=== PATIENT | female | born 1960 | race Caucasian/White ===

== ENCOUNTER 2018-07-22 11:30 | Inpatient (IN) ==
[2018-07-22] MEDS ORDERED: Morphine Inj 4 MG/ML Vial IV.PUSH ONE (12:55)
[2018-07-22] MEDS ORDERED: Vancomycin Inj 1,000 MG in Sodium Chlor 0.9% Inj 250 ML IV.SIG ONE (13:02)
--- NOTE | 2018-07-22 13:02 | ED ---
HPI General Chief complaint: HEAD BUTLER Stated complaint: Poss Infection Time Seen by Provider: 07/22/18 12:45 Source: patient Mode of arrival: ambulatory Limitations: no limitations History of Present Illness HPI Narrative: Patient is a 58-year-old female presenting to the emerge department for evaluation of pain, swelling and redness to her labia. Patient states it started 3 weeks ago with vaginal itching secondary to her diabetic medication Farxiga. Last week patient noticed a bump on the inside of her labia , over the next several days she noticed several bumps and now there are diffuse over both labia. Patient called her supervisor meter shop this morning who evaluated her in the office and cultured 1 of the areas. She was sent to the emergency department for further evaluation and admission. Patient reports 10 out of 10 pain when sitting. Pain is aching, burning, currently a 7 out of 10, constant. Past medical history significant for type 2 diabetes, hypertension, obesity, hyperlipidemia. Patient is followed by Dr. Pendleton. Patient states that her campaign advisor Dr. Chávez discontinued the Farxiga and started her on Janumet. Additionally patient had an upper respiratory infection a few weeks ago and was on oral antibiotics and oral steroids which is likely exacerbated symptoms. Related Data Home Medications Medication Instructions Recorded Confirmed aspirin 81 mg PO DAILY 07/22/18 07/22/18 dulaglutide [Trulicity] 0.75 mg SUBCUT QWEEK 07/22/18 07/22/18 ergocalciferol (vitamin D2) 50,000 unit PO QWEEK 07/22/18 07/22/18 [Vitamin D2] glyburide 5 mg PO DAILY 07/22/18 07/22/18 lisinopril-hydrochlorothiazide 0.5 tab PO DAILY 07/22/18 07/22/18 lorazepam 1 mg PO PRN PRN 07/22/18 07/22/18 metoprolol tartrate 25 mg PO BID 07/22/18 07/22/18 rosuvastatin 40 mg PO HS 07/22/18 07/22/18 sitagliptin-metformin [Janumet] 1 tab PO BID 07/22/18 07/22/18 spironolactone 25 mg PO DAILY 07/22/18 07/22/18 trazodone 50 mg PO HS PRN 07/22/18 07/22/18 Previous Rx's Medication Instructions Recorded fluconazole 200 mg PO Q24H #5 tab 07/26/18 sulfamethoxazole-trimethoprim 1 tab PO Q12HR #14 tab 07/26/18 Allergies Allergy/AdvReac Type Severity Reaction Status Date / Time No Known Allergies Allergy Verified 07/22/18 12:04 Review of Systems ROS: all other systems reviewed are negative [facility] Medical History Medical History History of MRSA infection (Acute ~07/22/18) Diabetes (Chronic) HTN (hypertension) (Chronic) Hyperlipemia (Chronic) Surgical History Surgical History History of appendectomy (Chronic) History of arthroscopy of right shoulder (Chronic) History of cholecystectomy (Chronic) History of hysterectomy (Chronic) History of tonsillectomy (Chronic) Social History Social History Substance History: No History of Abuse Second Hand Smoke Exposure: No Smoking Status: Never smoker How Often Do You Have a Drink Containing Alcohol: Never Recent Travel in [facility] within the Last 8 Weeks: Yes Recent Out of Country Travel within the Last 8 Weeks: No Immunization History Tetanus Immunization: <5 Years Exam Narrative Exam Narrative: GENERAL: Overweight, well-developed, alert female. Appears uncomfortable, no acute distress. SKIN: Focused skin assessment warm/dry. Edema and erythema noted to bilateral labia majora. Significant tenderness to palpation. Firm to palpation. HEAD: Atraumatic. Normocephalic. EYES: Pupils equal and round. No scleral icterus. No injection or drainage. ENT: No nasal bleeding or discharge. Mucous membranes pink and moist. NECK: Trachea midline. No JVD. CARDIOVASCULAR: Regular rate and rhythm. No murmur appreciated. RESPIRATORY: No accessory muscle use. Clear to auscultation. Breath sounds equal bilaterally. GASTROINTESTINAL: Abdomen soft, non-tender, nondistended. Hepatic and splenic margins not palpable. MUSCULOSKELETAL: No obvious deformities. No clubbing. No cyanosis. No edema. NEUROLOGICAL: Awake and alert. No obvious cranial nerve deficits. Motor grossly within normal limits. Normal speech. PSYCHIATRIC: Appropriate mood and affect; insight and judgment normal. Course Initial Documented Vital Signs Temperature 98.1 F 07/22/18 12:03 Pulse Rate 83 07/22/18 12:03 Respiratory Rate 18 07/22/18 12:03 Blood Pressure 151/77 H 07/22/18 12:03 Pulse Oximetry 100 07/22/18 12:03 Last Documented Vital Signs Temperature 97.9 F 07/26/18 07:26 Pulse Rate 75 07/26/18 07:26 Respiratory Rate 16 07/26/18 07:26 Blood Pressure 105/42 L 07/26/18 07:26 Pulse Oximetry 98 07/26/18 07:26 Medical Decision Making EFRAIN Attestation EFRAIN supervised visit: Yes Attestation: I, Dr. Oscar, have reviewed the advance practice practitioner's documentation and am in agreement, met with the patient face to face, made the diagnosis, and the medical decision making was done by me. *My assessment and Findings: Patient seen and examined by me in addition to Ade Goode a 58-year-old female presents emergency department with a week 's worth of significant rash on her bilateral labia. She has pain even when she sits on it at this point. I do not appreciate any crepitance, she is actually had attempted labial drainage by her [employer], no significant fluid was drained. She was sent here for admission to the hospital for iv antibiotics and infectious disease consult I do not disagree. My index of suspicion for necrotizing fasciitis is fairly low. Internal exam was deferred secondary to patient comfort. MDM Narrative Medical decision making narrative: Patient was sent in by her supervisor meter shop for evaluation of possible severe labial cellulitis with abscesses. Labs and imaging ordered and pending. Patient will be given morphine for pain control, Zofran to prevent nausea. Dr. Pendleton requested lactated Ringer's at 125, this was ordered. Patient significant other is at the bedside. IV access was established, patient was placed on secured entrance monitor and continuous pulse oximetry. CBC with no acute findings, chemistry is unremarkable, CRP is 0.72, sed rate is 42. CT scan of the abdomen and pelvis with no acute findings. Patient was given antibiotics empirically. She will be admitted under observation for IV antibiotics, Dr. Pendleton was notified, she states that she will see patient in consult. Patient was admitted to Dr. Iqbal. Admit orders placed. Patient and were advised on clinical findings and plan of care. Patient is resting comfortably. Patient's vital signs remained stable. Medical Screen Exam Complete: Yes Emergency Medical Condition: Yes Differential Diagnosis Differential Diagnosis: Cellulitis versus abscess versus excising fasciitis versus metabolic abnormality versus other Medical Records Medical records reviewed: Yes I reviewed the patient's medical records. Lab Data Lab results reviewed: Yes I reviewed the patient's lab results. Result diagrams: 07/23/18 08:29 07/26/18 04:00 Lab Results 07/22/18 07/22/18 07/22/18 Range/Units 13:20 13:20 13:20 WBC 8.8 (4.0-11.0) th/mm3 RBC 4.69 (4.00-5.30) mil/mm3 Hgb 13.8 (11.6-15.3) gm/dL Hct 39.6 (35.0-46.0) % MCV 84.3 (80.0-100.0) fL MCH 29.4 (27.0-34.0) pg MCHC 34.8 (32.0-36.0) % RDW 15.2 (11.6-17.2) % Plt Count 173 (150-450) th/mm3 MPV 9.2 (7.0-11.0) fL Neut % (Auto) 70.5 H (16.0-70.0) % Lymph % (Auto) 22.0 (9.0-44.0) % [place] % (Auto) 4.7 (0.0-8.0) % Eos % (Auto) 2.2 (0.0-4.0) % Baso % (Auto) 0.6 (0.0-2.0) % Neut # (Auto) 6.2 (1.8-7.7) th/mm3 Lymph # (Auto) 1.9 (1.0-4.8) th/mm3 [place] # (Auto) 0.4 (0.0-0.9) th/mm3 Eos # (Auto) 0.2 (0.0-0.4) th/mm3 Baso # (Auto) 0.1 (0.0-0.2) th/mm3 WBC Differential . Differential Comment Auto diff final ESR (0-30) mm/hr PT 10.1 (9.8-11.6) sec INR 1.0 Ratio APTT 24.7 (23.4-31.7) sec Sodium 138 (136-145) meq/L Potassium 4.1 (3.5-5.1) meq/L Chloride 104 (98-107) meq/L Carbon Dioxide 28.0 (21.0-32.0) meq/L Anion Gap 6 (5-15) meq/L BUN 16 (7-18) mg/dL Creatinine 0.89 (0.50-1.00) mg/dL Estimated GFR 66 L (>89) mL/min POC Glucose (68-110) mg/dl Random Glucose 194 H (74-106) mg/dL Hemoglobin A1c (4.3-6.0) % Calcium 9.5 (8.5-10.1) mg/dL Magnesium 1.6 (1.5-2.5) mg/dL Total Bilirubin 0.7 (0.2-1.0) mg/dL AST 18 (15-37) U/L ALT 25 (10-53) U/L Alkaline Phosphatase 57 (45-117) U/L C-Reactive Protein 0.72 H (0.00-0.30) mg/dL Total Protein 8.0 (6.4-8.2) g/dL Albumin 3.6 (3.4-5.0) g/dL Lipase 205 (73-393) U/L Urine Color (Yellw/Straw) Urine Clarity (Clear) Urine pH (5.0-8.5) Ur Specific [place] (1.002-1.035) Urine Protein (Neg-Trace) mg/dL Urine Glucose (UA) (Negative) mg/dL Urine Ketones (Negative) mg/dL Urine Occult Blood (Negative) Urine Nitrate (Negative) Urine Bilirubin (Negative) Urine Urobilinogen (Less than 2) mg/dL Ur Leukocyte Esterase (Negative) Urine RBC (0-3) /hpf Urine WBC (0-5) /hpf Ur Squamous Epith Cells (0-5) /hpf Granular Casts (None) /lpf Urine Mucus (Occasional) /lpf Micro UA Comment Ur Microscopic Review Urine Culture Comments Vancomycin Trough (5.0-10.0) mcg/mL 07/22/18 07/22/18 07/22/18 Range/Units 13:20 13:20 14:32 WBC (4.0-11.0) th/mm3 RBC (4.00-5.30) mil/mm3 Hgb (11.6-15.3) gm/dL Hct (35.0-46.0) % MCV (80.0-100.0) fL MCH (27.0-34.0) pg MCHC (32.0-36.0) % RDW (11.6-17.2) % Plt Count (150-450) th/mm3 MPV (7.0-11.0) fL Neut % (Auto) (16.0-70.0) % Lymph % (Auto) (9.0-44.0) % [place] % (Auto) (0.0-8.0) % Eos % (Auto) (0.0-4.0) % Baso % (Auto) (0.0-2.0) % Neut # (Auto) (1.8-7.7) th/mm3 Lymph # (Auto) (1.0-4.8) th/mm3 [place] # (Auto) (0.0-0.9) th/mm3 Eos # (Auto) (0.0-0.4) th/mm3 Baso # (Auto) (0.0-0.2) th/mm3 WBC Differential Differential Comment ESR 42 H (0-30) mm/hr PT (9.8-11.6) sec INR Ratio APTT (23.4-31.7) sec Sodium (136-145) meq/L Potassium (3.5-5.1) meq/L Chloride (98-107) meq/L Carbon Dioxide (21.0-32.0) meq/L Anion Gap (5-15) meq/L BUN (7-18) mg/dL Creatinine (0.50-1.00) mg/dL Estimated GFR (>89) mL/min POC Glucose (68-110) mg/dl Random Glucose (74-106) mg/dL Hemoglobin A1c 8.0 H (4.3-6.0) % Calcium (8.5-10.1) mg/dL Magnesium (1.5-2.5) mg/dL Total Bilirubin (0.2-1.0) mg/dL AST (15-37) U/L ALT (10-53) U/L Alkaline Phosphatase (45-117) U/L C-Reactive Protein (0.00-0.30) mg/dL Total Protein (6.4-8.2) g/dL Albumin (3.4-5.0) g/dL Lipase (73-393) U/L Urine Color Yellow (Yellw/Straw) Urine Clarity Clear (Clear) Urine pH 5.0 (5.0-8.5) Ur Specific [place] 1.019 (1.002-1.035) Urine Protein Negative (Neg-Trace) mg/dL Urine Glucose (UA) Negative (Negative) mg/dL Urine Ketones Negative (Negative) mg/dL Urine Occult Blood Moderate H (Negative) Urine Nitrate Negative (Negative) Urine Bilirubin Negative (Negative) Urine Urobilinogen Less than 2 (Less than 2) mg/dL Ur Leukocyte Esterase Negative (Negative) Urine RBC 1 (0-3) /hpf Urine WBC 2 (0-5) /hpf Ur Squamous Epith Cells 2 (0-5) /hpf Granular Casts 1 (None) /lpf Urine Mucus Few H (Occasional) /lpf Micro UA Comment Culture not ind Ur Microscopic Review Not Reportable Urine Culture Comments Culture not ind Vancomycin Trough (5.0-10.0) mcg/mL 07/22/18 07/22/18 07/23/18 Range/Units 17:36 22:19 08:29 WBC 6.1 (4.0-11.0) th/mm3 RBC 4.42 (4.00-5.30) mil/mm3 Hgb 12.7 (11.6-15.3) gm/dL Hct 37.2 (35.0-46.0) % MCV 84.2 (80.0-100.0) fL MCH 28.8 (27.0-34.0) pg MCHC 34.3 (32.0-36.0) % RDW 14.9 (11.6-17.2) % Plt Count 147 L (150-450) th/mm3 MPV 8.7 (7.0-11.0) fL Neut % (Auto) 67.0 (16.0-70.0) % Lymph % (Auto) 23.4 (9.0-44.0) % [place] % (Auto) 5.8 (0.0-8.0) % Eos % (Auto) 3.2 (0.0-4.0) % Baso % (Auto) 0.6 (0.0-2.0) % Neut # (Auto) 4.1 (1.8-7.7) th/mm3 Lymph # (Auto) 1.4 (1.0-4.8) th/mm3 [place] # (Auto) 0.3 (0.0-0.9) th/mm3 Eos # (Auto) 0.2 (0.0-0.4) th/mm3 Baso # (Auto) 0.0 (0.0-0.2) th/mm3 WBC Differential . Differential Comment Auto diff final ESR (0-30) mm/hr PT (9.8-11.6) sec INR Ratio APTT (23.4-31.7) sec Sodium (136-145) meq/L Potassium (3.5-5.1) meq/L Chloride (98-107) meq/L Carbon Dioxide (21.0-32.0) meq/L Anion Gap (5-15) meq/L BUN (7-18) mg/dL Creatinine (0.50-1.00) mg/dL Estimated GFR (>89) mL/min POC Glucose 114 H 148 H (68-110) mg/dl Random Glucose (74-106) mg/dL Hemoglobin A1c (4.3-6.0) % Calcium (8.5-10.1) mg/dL Magnesium (1.5-2.5) mg/dL Total Bilirubin (0.2-1.0) mg/dL AST (15-37) U/L ALT (10-53) U/L Alkaline Phosphatase (45-117) U/L C-Reactive Protein (0.00-0.30) mg/dL Total Protein (6.4-8.2) g/dL Albumin (3.4-5.0) g/dL Lipase (73-393) U/L Urine Color (Yellw/Straw) Urine Clarity (Clear) Urine pH (5.0-8.5) Ur Specific [place] (1.002-1.035) Urine Protein (Neg-Trace) mg/dL Urine Glucose (UA) (Negative) mg/dL Urine Ketones (Negative) mg/dL Urine Occult Blood (Negative) Urine Nitrate (Negative) Urine Bilirubin (Negative) Urine Urobilinogen (Less than 2) mg/dL Ur Leukocyte Esterase (Negative) Urine RBC (0-3) /hpf Urine WBC (0-5) /hpf Ur Squamous Epith Cells (0-5) /hpf Granular Casts (None) /lpf Urine Mucus (Occasional) /lpf Micro UA Comment Ur Microscopic Review Urine Culture Comments Vancomycin Trough (5.0-10.0) mcg/mL 07/23/18 07/23/18 07/23/18 Range/Units 08:29 08:46 12:36 WBC (4.0-11.0) th/mm3 RBC (4.00-5.30) mil/mm3 Hgb (11.6-15.3) gm/dL Hct (35.0-46.0) % MCV (80.0-100.0) fL MCH (27.0-34.0) pg MCHC (32.0-36.0) % RDW (11.6-17.2) % Plt Count (150-450) th/mm3 MPV (7.0-11.0) fL Neut % (Auto) (16.0-70.0) % Lymph % (Auto) (9.0-44.0) % [place] % (Auto) (0.0-8.0) % Eos % (Auto) (0.0-4.0) % Baso % (Auto) (0.0-2.0) % Neut # (Auto) (1.8-7.7) th/mm3 Lymph # (Auto) (1.0-4.8) th/mm3 [place] # (Auto) (0.0-0.9) th/mm3 Eos # (Auto) (0.0-0.4) th/mm3 Baso # (Auto) (0.0-0.2) th/mm3 WBC Differential Differential Comment ESR (0-30) mm/hr PT (9.8-11.6) sec INR Ratio APTT (23.4-31.7) sec Sodium 138 (136-145) meq/L Potassium 4.1 (3.5-5.1) meq/L Chloride 102 (98-107) meq/L Carbon Dioxide 32.0 (21.0-32.0) meq/L Anion Gap 4 L (5-15) meq/L BUN 13 (7-18) mg/dL Creatinine 0.86 (0.50-1.00) mg/dL Estimated GFR 68 L (>89) mL/min POC Glucose 155 H 288 H (68-110) mg/dl Random Glucose 173 H (74-106) mg/dL Hemoglobin A1c (4.3-6.0) % Calcium 9.1 (8.5-10.1) mg/dL Magnesium (1.5-2.5) mg/dL Total Bilirubin (0.2-1.0) mg/dL AST (15-37) U/L ALT (10-53) U/L Alkaline Phosphatase (45-117) U/L C-Reactive Protein (0.00-0.30) mg/dL Total Protein (6.4-8.2) g/dL Albumin (3.4-5.0) g/dL Lipase (73-393) U/L Urine Color (Yellw/Straw) Urine Clarity (Clear) Urine pH (5.0-8.5) Ur Specific [place] (1.002-1.035) Urine Protein (Neg-Trace) mg/dL Urine Glucose (UA) (Negative) mg/dL Urine Ketones (Negative) mg/dL Urine Occult Blood (Negative) Urine Nitrate (Negative) Urine Bilirubin (Negative) Urine Urobilinogen (Less than 2) mg/dL Ur Leukocyte Esterase (Negative) Urine RBC (0-3) /hpf Urine WBC (0-5) /hpf Ur Squamous Epith Cells (0-5) /hpf Granular Casts (None) /lpf Urine Mucus (Occasional) /lpf Micro UA Comment Ur Microscopic Review Urine Culture Comments Vancomycin Trough (5.0-10.0) mcg/mL 07/23/18 07/23/18 07/24/18 Range/Units 19:36 22:11 09:36 WBC (4.0-11.0) th/mm3 RBC (4.00-5.30) mil/mm3 Hgb (11.6-15.3) gm/dL Hct (35.0-46.0) % MCV (80.0-100.0) fL MCH (27.0-34.0) pg MCHC (32.0-36.0) % RDW (11.6-17.2) % Plt Count (150-450) th/mm3 MPV (7.0-11.0) fL Neut % (Auto) (16.0-70.0) % Lymph % (Auto) (9.0-44.0) % [place] % (Auto) (0.0-8.0) % Eos % (Auto) (0.0-4.0) % Baso % (Auto) (0.0-2.0) % Neut # (Auto) (1.8-7.7) th/mm3 Lymph # (Auto) (1.0-4.8) th/mm3 [place] # (Auto) (0.0-0.9) th/mm3 Eos # (Auto) (0.0-0.4) th/mm3 Baso # (Auto) (0.0-0.2) th/mm3 WBC Differential Differential Comment ESR (0-30) mm/hr PT (9.8-11.6) sec INR Ratio APTT (23.4-31.7) sec Sodium (136-145) meq/L Potassium (3.5-5.1) meq/L Chloride (98-107) meq/L Carbon Dioxide (21.0-32.0) meq/L Anion Gap (5-15) meq/L BUN (7-18) mg/dL Creatinine (0.50-1.00) mg/dL Estimated GFR (>89) mL/min POC Glucose 178 H 159 H 144 H (68-110) mg/dl Random Glucose (74-106) mg/dL Hemoglobin A1c (4.3-6.0) % Calcium (8.5-10.1) mg/dL Magnesium (1.5-2.5) mg/dL Total Bilirubin (0.2-1.0) mg/dL AST (15-37) U/L ALT (10-53) U/L Alkaline Phosphatase (45-117) U/L C-Reactive Protein (0.00-0.30) mg/dL Total Protein (6.4-8.2) g/dL Albumin (3.4-5.0) g/dL Lipase (73-393) U/L Urine Color (Yellw/Straw) Urine Clarity (Clear) Urine pH (5.0-8.5) Ur Specific [place] (1.002-1.035) Urine Protein (Neg-Trace) mg/dL Urine Glucose (UA) (Negative) mg/dL Urine Ketones (Negative) mg/dL Urine Occult Blood (Negative) Urine Nitrate (Negative) Urine Bilirubin (Negative) Urine Urobilinogen (Less than 2) mg/dL Ur Leukocyte Esterase (Negative) Urine RBC (0-3) /hpf Urine WBC (0-5) /hpf Ur Squamous Epith Cells (0-5) /hpf Granular Casts (None) /lpf Urine Mucus (Occasional) /lpf Micro UA Comment Ur Microscopic Review Urine Culture Comments Vancomycin Trough (5.0-10.0) mcg/mL 07/24/18 07/24/18 07/24/18 Range/Units 13:05 18:02 22:06 WBC (4.0-11.0) th/mm3 RBC (4.00-5.30) mil/mm3 Hgb (11.6-15.3) gm/dL Hct (35.0-46.0) % MCV (80.0-100.0) fL MCH (27.0-34.0) pg MCHC (32.0-36.0) % RDW (11.6-17.2) % Plt Count (150-450) th/mm3 MPV (7.0-11.0) fL Neut % (Auto) (16.0-70.0) % Lymph % (Auto) (9.0-44.0) % [place] % (Auto) (0.0-8.0) % Eos % (Auto) (0.0-4.0) % Baso % (Auto) (0.0-2.0) % Neut # (Auto) (1.8-7.7) th/mm3 Lymph # (Auto) (1.0-4.8) th/mm3 [place] # (Auto) (0.0-0.9) th/mm3 Eos # (Auto) (0.0-0.4) th/mm3 Baso # (Auto) (0.0-0.2) th/mm3 WBC Differential Differential Comment ESR (0-30) mm/hr PT (9.8-11.6) sec INR Ratio APTT (23.4-31.7) sec Sodium (136-145) meq/L Potassium (3.5-5.1) meq/L Chloride (98-107) meq/L Carbon Dioxide (21.0-32.0) meq/L Anion Gap (5-15) meq/L BUN (7-18) mg/dL Creatinine (0.50-1.00) mg/dL Estimated GFR (>89) mL/min POC Glucose 137 H 138 H 121 H (68-110) mg/dl Random Glucose (74-106) mg/dL Hemoglobin A1c (4.3-6.0) % Calcium (8.5-10.1) mg/dL Magnesium (1.5-2.5) mg/dL Total Bilirubin (0.2-1.0) mg/dL AST (15-37) U/L ALT (10-53) U/L Alkaline Phosphatase (45-117) U/L C-Reactive Protein (0.00-0.30) mg/dL Total Protein (6.4-8.2) g/dL Albumin (3.4-5.0) g/dL Lipase (73-393) U/L Urine Color (Yellw/Straw) Urine Clarity (Clear) Urine pH (5.0-8.5) Ur Specific [place] (1.002-1.035) Urine Protein (Neg-Trace) mg/dL Urine Glucose (UA) (Negative) mg/dL Urine Ketones (Negative) mg/dL Urine Occult Blood (Negative) Urine Nitrate (Negative) Urine Bilirubin (Negative) Urine Urobilinogen (Less than 2) mg/dL Ur Leukocyte Esterase (Negative) Urine RBC (0-3) /hpf Urine WBC (0-5) /hpf Ur Squamous Epith Cells (0-5) /hpf Granular Casts (None) /lpf Urine Mucus (Occasional) /lpf Micro UA Comment Ur Microscopic Review Urine Culture Comments Vancomycin Trough (5.0-10.0) mcg/mL 07/25/18 07/25/18 07/25/18 Range/Units 12:27 16:10 21:41 WBC (4.0-11.0) th/mm3 RBC (4.00-5.30) mil/mm3 Hgb (11.6-15.3) gm/dL Hct (35.0-46.0) % MCV (80.0-100.0) fL MCH (27.0-34.0) pg MCHC (32.0-36.0) % RDW (11.6-17.2) % Plt Count (150-450) th/mm3 MPV (7.0-11.0) fL Neut % (Auto) (16.0-70.0) % Lymph % (Auto) (9.0-44.0) % [place] % (Auto) (0.0-8.0) % Eos % (Auto) (0.0-4.0) % Baso % (Auto) (0.0-2.0) % Neut # (Auto) (1.8-7.7) th/mm3 Lymph # (Auto) (1.0-4.8) th/mm3 [place] # (Auto) (0.0-0.9) th/mm3 Eos # (Auto) (0.0-0.4) th/mm3 Baso # (Auto) (0.0-0.2) th/mm3 WBC Differential Differential Comment ESR (0-30) mm/hr PT (9.8-11.6) sec INR Ratio APTT (23.4-31.7) sec Sodium (136-145) meq/L Potassium (3.5-5.1) meq/L Chloride (98-107) meq/L Carbon Dioxide (21.0-32.0) meq/L Anion Gap (5-15) meq/L BUN (7-18) mg/dL Creatinine (0.50-1.00) mg/dL Estimated GFR (>89) mL/min POC Glucose 150 H 132 H 178 H (68-110) mg/dl Random Glucose (74-106) mg/dL Hemoglobin A1c (4.3-6.0) % Calcium (8.5-10.1) mg/dL Magnesium (1.5-2.5) mg/dL Total Bilirubin (0.2-1.0) mg/dL AST (15-37) U/L ALT (10-53) U/L Alkaline Phosphatase (45-117) U/L C-Reactive Protein (0.00-0.30) mg/dL Total Protein (6.4-8.2) g/dL Albumin (3.4-5.0) g/dL Lipase (73-393) U/L Urine Color ([place]ellw/Straw) Urine Clarity (Clear) Urine pH (5.0-8.5) Ur Specific [place] (1.002-1.035) Urine Protein (Neg-Trace) mg/dL Urine Glucose (UA) (Negative) mg/dL Urine Ketones (Negative) mg/dL Urine Occult Blood (Negative) Urine Nitrate (Negative) Urine Bilirubin (Negative) Urine Urobilinogen (Less than 2) mg/dL Ur Leukocyte Esterase (Negative) Urine RBC (0-3) /hpf Urine WBC (0-5) /hpf Ur Squamous Epith Cells (0-5) /hpf Granular Casts (None) /lpf Urine Mucus (Occasional) /lpf Micro UA Comment Ur Microscopic Review Urine Culture Comments Vancomycin Trough (5.0-10.0) mcg/mL 07/26/18 07/26/18 Range/Units 04:00 07:49 WBC (4.0-11.0) th/mm3 RBC (4.00-5.30) mil/mm3 Hgb (11.6-15.3) gm/dL Hct (35.0-46.0) % MCV (80.0-100.0) fL MCH (27.0-34.0) pg MCHC (32.0-36.0) % RDW (11.6-17.2) % Plt Count (150-450) th/mm3 MPV (7.0-11.0) fL Neut % (Auto) (16.0-70.0) % Lymph % (Auto) (9.0-44.0) % [place] % (Auto) (0.0-8.0) % Eos % (Auto) (0.0-4.0) % Baso % (Auto) (0.0-2.0) % Neut # (Auto) (1.8-7.7) th/mm3 Lymph # (Auto) (1.0-4.8) th/mm3 [place] # (Auto) (0.0-0.9) th/mm3 Eos # (Auto) (0.0-0.4) th/mm3 Baso # (Auto) (0.0-0.2) th/mm3 WBC Differential Differential Comment ESR (0-30) mm/hr PT (9.8-11.6) sec INR Ratio APTT (23.4-31.7) sec Sodium (136-145) meq/L Potassium (3.5-5.1) meq/L Chloride (98-107) meq/L Carbon Dioxide (21.0-32.0) meq/L Anion Gap (5-15) meq/L BUN 14 (7-18) mg/dL Creatinine 1.12 H (0.50-1.00) mg/dL Estimated GFR 50 L (>89) mL/min POC Glucose 144 H (68-110) mg/dl Random Glucose (74-106) mg/dL Hemoglobin A1c (4.3-6.0) % Calcium (8.5-10.1) mg/dL Magnesium (1.5-2.5) mg/dL Total Bilirubin (0.2-1.0) mg/dL AST (15-37) U/L ALT (10-53) U/L Alkaline Phosphatase (45-117) U/L C-Reactive Protein (0.00-0.30) mg/dL Total Protein (6.4-8.2) g/dL Albumin (3.4-5.0) g/dL Lipase (73-393) U/L Urine Color (Yellw/Straw) Urine Clarity (Clear) Urine pH (5.0-8.5) Ur Specific [place] (1.002-1.035) Urine Protein (Neg-Trace) mg/dL Urine Glucose (UA) (Negative) mg/dL Urine Ketones (Negative) mg/dL Urine Occult Blood (Negative) Urine Nitrate (Negative) Urine Bilirubin (Negative) Urine Urobilinogen (Less than 2) mg/dL Ur Leukocyte Esterase (Negative) Urine RBC (0-3) /hpf Urine WBC (0-5) /hpf Ur Squamous Epith Cells (0-5) /hpf Granular Casts (None) /lpf Urine Mucus (Occasional) /lpf Micro UA Comment Ur Microscopic Review Urine Culture Comments Vancomycin Trough 8.0 (5.0-10.0) mcg/mL Imaging Data Radiologist's impression: Abdomen/Pelvis CT 07/22/18 12:55 CONCLUSION: 1. Negative CT scan abdomen and pelvis. I do not see evidence for intra- abdominal process. 2. Do not see evidence for a vulvar abscess. Discharge Plan Discharge Disposition Patient Disposition: ED Admit(ED Internal Use Only) Discharge Condition Condition: Good Discharge Order Discharge Orders: Discharge Order (Routine); Ordered 07/26/18 Ordered By: Annette Iqbal ED Use Only Admit Order (Routine); Ordered 07/22/18 Ordered By: Ade Friedman Discharge Details Diagnosis: Vulvar cellulitis, Diabetes Physicians Team ED Provider: Davon Oscar ED Midlevel Provider: Ade Friedman Attending Provider: Annette Iqbal Other Providers: Vivian Pendleton Status ED Status: Left Department Discharge Information Discharge Date/Time: 07/22/18 16:52
[2018-07-22] MEDS ORDERED: Piperacil/Tazo 4.5 GM Premix 4.5 GM/100 ML BAG IV.SIG SCH (13:15)
[2018-07-22] MEDS ORDERED: Clindamycin 900 mg/NS Premix 900 MG/50 ML PIGGYBACK IV.SIG SCH (13:15)
[2018-07-22 14:03] LABS: Activated Partial Thrombo Time 24.7 sec (23.4-31.7); Prothrombin Time 10.1 sec (9.8-11.6)
[2018-07-22 14:05] LABS: Alkaline Phosphatase 57 U/L (45-117); C-Reactive Protein 0.72 mg/dL (0.00-0.30)
[2018-07-22 14:07] LABS: Alanine Aminotransferase 25 U/L (10-53); Albumin 3.6 g/dL (3.4-5.0); Anion Gap 6 meq/L (5-15); Aspartate Aminotransferase 18 U/L (15-37); Blood Urea Nitrogen 16 mg/dL (7-18); Calcium 9.5 mg/dL (8.5-10.1); Chloride 104 meq/L (98-107); Glomerular Filtration Rate 66 mL/min (>89); Glucose,Random 194 mg/dL (74-106); Lipase 205 U/L (73-393); Magnesium 1.6 mg/dL (1.5-2.5); Potassium 4.1 meq/L (3.5-5.1); Sodium 138 meq/L (136-145)
[2018-07-22] MEDS ORDERED: Mag Sulf 1 gm/100 ml Premix 100 ML IV.SIG ONE (14:13)
[2018-07-22 14:44] LABS: Baso # (Auto) 0.1 th/mm3 (0.0-0.2); Baso % (Auto) 0.6 % (0.0-2.0); Eos # (Auto) 0.2 th/mm3 (0.0-0.4); Eos % (Auto) 2.2 % (0.0-4.0); Hematocrit 39.6 % (35.0-46.0); Hemoglobin 13.8 gm/dL (11.6-15.3); Lymph # (Auto) 1.9 th/mm3 (1.0-4.8); Mean Corpuscular HGB Conc 34.8 % (32.0-36.0); Mean Corpuscular Hemoglobin 29.4 pg (27.0-34.0); Mean Corpuscular Volume 84.3 fL (80.0-100.0); Mean Platelet Volume 9.2 fL (7.0-11.0); Mono # (Auto) 0.4 th/mm3 (0.0-0.9); Mono % (Auto) 4.7 % (0.0-8.0); Neut # (Auto) 6.2 th/mm3 (1.8-7.7); Neut % (Auto) 70.5 % (16.0-70.0); Platelet Count 173 th/mm3 (150-450); Red Blood Count 4.69 mil/mm3 (4.00-5.30); Red Cell Distribution Width 15.2 % (11.6-17.2); White Blood Count 8.8 th/mm3 (4.0-11.0)
--- NOTE | 2018-07-22 15:01 | CT ---
EXAM DATE: 07/22/2018 2:57 PM EST AGE/SEX: 58 years / Female INDICATIONS: Patient complains of pelvic pain, vulva cellulitis. CLINICAL DATA: This is the patient's initial encounter. Patient reports that signs and symptoms have been present for 1 week and indicates a pain score of 10/10. MEDICAL/SURGICAL HISTORY: Diabetes. Hypertension. None. ORAL CONTRAST: No oral contrast ingested. RADIATION DOSE: 16.96 CTDI (mGy) COMPARISON: No prior exams available for comparison. TECHNIQUE: Multiple contiguous axial images were obtained through the abdomen and pelvis following b olus infusion of 95 ml Omnipaque 350 (iohexol) nonionic water-soluble contrast as a single exam dos e. No oral contrast ingested. Using automated exposure control and adjustment of the mA and/or kV ac cording to patient size, radiation dose was kept as low as reasonably achievable to obtain optimal di agnostic quality images. DICOM format image data is available electronically for review and comparis on. FINDINGS: Lower Lungs: The visualized lower lungs are clear. Liver: The liver has a homogeneous density without space-occupying lesion. There is no dilation of th e biliary tree. Spleen: Homogeneous density without enlargement. Pancreas: Unremarkable without mass or calcification. Kidneys: Normal in size and shape. No evidence of mass or hydronephrosis. Adrenal Glands: Unremarkable. Aorta: The aorta and proximal iliac vessels are grossly unremarkable without aneurysmal dilation. Bowel/Mesentery: The bowel loops are grossly unremarkable. The cecum and sigmoid colon have a normal configuration. Abdominal Wall: Intact. Retroperitoneum: No evidence of adenopathy in the retrocrural, para-aortic, or deep pelvic regions. Bladder: Contours are smooth. Reproductive Organs: No abnormal masses or calcifications seen. Inguinal: The inguinal region is unremarkable without evidence of adenopathy. Bony Structures: Unremarkable. CONCLUSION: 1. Negative CT scan abdomen and pelvis. I do not see evidence for intra-abdominal process. 2. Do not see evidence for a vulvar abscess. Electronically signed by: Chico Le MD Board Certified Radiologist 07/22/2018 2:59 PM EST
[2018-07-22 15:04] LABS: Bilirubin,Urine Negative (Negative); Clarity,Urine Clear (Clear); Color,Urine Yellow (Yellw/Straw); Glucose,Urine (UA) Negative (Negative); Leukocyte Esterase,Urine Negative (Negative); Mucus,Urine Few /lpf (Occasional); Nitrite,Urine Negative (Negative); Specific Gravity,Urine 1.019 (1.002-1.035); Squamous Epithelial Cell,Urine 2 /hpf (0-5)
[2018-07-22] MEDS ORDERED: Acetaminophen 325 MG Tablet PO PRN ×2 (15:30→15:33)
[2018-07-22] MEDS ORDERED: Dextrose 50% in Water 50 ML Vial IV.PUSH PRN (15:30)
[2018-07-22] MEDS ORDERED: Bisacodyl 10 MG Supp RECTAL PRN (15:30)
[2018-07-22] MEDS ORDERED: Naloxone Inj 0.4 MG/ML Vial IV.PUSH PRN (15:33)
--- NOTE | 2018-07-22 16:13 | P.HPIM ---
History of Present Illness Primary Care Physician: [place] History of Present Illness: 58-year-old pleasant female with a history of diabetes mellitus type 2, hypertension, hyperlipidemia was sent to the emergency room for further evaluation by her BODYBUILDER physician Dr. Pendleton after being seen today in clinic for complaints of 1 week history of worsening bilateral labial pain with increased skin lesions and redness over the area. She reports 1 week ago she developed 1 bump over the labial area however has progressively had multiple bumps erupt during the past week to the point where it has become very painful. She reports that in the past she was on Farxiga for the past 3 months and due to worsening recurrent symptoms of yeast infections it was stopped 2 weeks ago in which she was placed on Junamet. She has not had any chills or fevers with the symptoms. The patient reports Dr. Pendleton attempted to open 1 of the lesions with no significant drainage and attempted to culture the area. She was sent here for further evaluation for underlying abscess. Of note, patient also developed an upper respiratory infection about 2 weeks ago in which she was put on prednisone and antibiotics which she has completed the course of. Diagnosis (1) Vulvar cellulitis: Review of Systems Constitutional: Reports as per HPI, Denies chills, Denies fatigue, Denies fever( s), Denies headache(s) and Denies lethargy Eyes: Denies blurry vision, Denies change in vision and Denies eye pain Ears, Nose, Mouth, and Throat: Denies abnormal hearing, Denies headache(s), Denies mouth pain, Denies nasal congestion, Denies neck pain and Denies sore throat Cardiovascular: Denies chest pain, Denies pedal edema, Denies palpitations and Denies dyspnea Respiratory: Denies cough and Denies dyspnea Gastrointestinal: Denies abdominal pain, Denies constipation, Denies loose stools, Denies nausea and Denies vomiting Genitourinary: Denies dysuria, Denies urinary hesitancy, Denies urinary urgency , Denies vaginal discharge and Reports vaginal pruritus Musculoskeletal: Denies back pain, Denies myalgias, Denies arthralgias, Denies neck pain and Denies numbness Skin/Breast: Reports as per HPI, Reports lesions (As described in HPI), Denies new lesions and Reports rash Neurologic: Denies abnormal hearing, Denies headache(s), Denies focal weakness, Denies memory loss and Denies numbness Psychiatric: Denies anxiety, Denies depression and Denies memory loss Endocrine: Denies cold intolerance, Denies heat intolerance and Denies palpitations Hematologic/Lymphatic: Denies easy bleeding and Denies easy bruising Allergic/Immunologic: Denies tongue swelling and Denies wheezing PMFSH History History Provided By: Patient Medical History Medical History Diabetes (Chronic) HTN (hypertension) (Chronic) Hyperlipemia (Chronic) Surgical History Surgical History History of appendectomy (Chronic) History of arthroscopy of right shoulder (Chronic) History of cholecystectomy (Chronic) History of hysterectomy (Chronic) History of tonsillectomy (Chronic) Social History Social History Substance History: No History of Abuse Second Hand Smoke Exposure: No Smoking Status: Never smoker How Often Do You Have a Drink Containing Alcohol: Never Recent Travel in [facility] within the Last 8 Weeks: Yes Recent Out of Country Travel within the Last 8 Weeks: No Immunization History Tetanus Immunization: <5 Years Medications and Allergies Allergies Allergy/AdvReac Type Severity Reaction Status Date / Time No Known Allergies Allergy Verified 07/22/18 12:04 Home Medications Medication Instructions Recorded Confirmed Type aspirin 81 mg PO DAILY 07/22/18 07/22/18 History dulaglutide [Trulicity] 0.75 mg SUBCUT QWEEK 07/22/18 07/22/18 History ergocalciferol (vitamin D2) 50,000 unit PO QWEEK 07/22/18 07/22/18 History [Vitamin D2] glyburide 5 mg PO DAILY 07/22/18 07/22/18 History lisinopril-hydrochlorothiazide 0.5 tab PO DAILY 07/22/18 07/22/18 History lorazepam 1 mg PO PRN PRN 07/22/18 07/22/18 History lorazepam 2 mg PO HS PRN 07/22/18 07/22/18 History metoprolol tartrate 25 mg PO BID 07/22/18 07/22/18 History rosuvastatin 40 mg PO HS 07/22/18 07/22/18 History sitagliptin-metformin [Janumet] 1 tab PO BID 07/22/18 07/22/18 History spironolactone 25 mg PO DAILY 07/22/18 07/22/18 History trazodone 50 mg PO HS PRN 07/22/18 07/22/18 History Active Medications: Active Medications Acetaminophen (Tylenol) 650 mg PO Q4H PRN PRN Reason: Temp > 100.4 Acetaminophen (Tylenol) 650 mg PO Q6H PRN PRN Reason: PAIN SCALE 1 TO 2 Hydrocodone Bitart/Acetaminophen (Blanca 5/325) 1 tab PO Q4H PRN PRN Reason: PAIN SCALE 6 TO 10 Al Hydroxide/Mg Hydroxide (Milk Of Magnesia Liq) 30 ml PO Q12H PRN PRN Reason: Mild Constipation Bisacodyl (Dulcolax Supp) 10 mg RECTAL DAILY PRN PRN Reason: SEVERE CONSITIPATION Dextrose (D50w Vial) 50 ml IV.PUSH UNSCH PRN PRN Reason: PER HYPOGLYCEMIA PROTOCOL Fluconazole (Diflucan) 200 mg PO Q24H MARYLOU Glucagon (Glucagon Inj) 1 mg OTHER UNSCH PRN PRN Reason: for Hypoglycemia Protocol Lactated Ringer's (Lr 1000 Ml Inj) 1,000 mls @ 125 mls/hr IV.CONT .Q8H [facility] Last Admin: 07/22/18 14:20 Dose: 125 mls/hr Piperacillin/Tazobactam/Dextrose (Zosyn 4.5 Gm Premix) 4.5 gm in 100 mls @ 200 mls/hr IV.SIG ONCE [facility] Last Infusion: 07/22/18 14:09 Dose: Infused Clindamycin Phosphate 900 mg/ (Sodium Chloride) 106 mls @ 212 mls/hr IV.SIG Q8H [facility] Last Infusion: 07/22/18 15:50 Dose: Infused Insulin Aspart (Novolog Insulin Correctional Sugar Inj) 0 unit SQ ACHS [facility]; Protocol Lactulose (Lactulose Liq) 30 ml PO DAILY PRN PRN Reason: SEVERE CONSITIPATION Naloxone HCl (Narcan Inj) 0.4 mg IV.PUSH UNSCH PRN PRN Reason: SEE LABEL COMMENTS Ondansetron HCl (Zofran Inj) 4 mg IV.PUSH Q6H PRN PRN Reason: NAUSEA OR VOMITING Senna/Docusate Sodium (Stefany-Colace) 1 tab PO BID MARYLOU Sennosides (Senokot) 17.2 mg PO Q12H PRN PRN Reason: Moderate Constipation Sodium Chloride (Ns Flush) 2 ml IV.FLUSH BID MARYLOU Sodium Chloride (Ns Flush) 2 ml IV.FLUSH UNSCH PRN PRN Reason: FLUSH AFTER USING IV ACCESS Tramadol HCl (Ultram) 50 mg PO Q4H PRN PRN Reason: PAIN SCALE 3 TO 5 Physical Exam Vital signs: Last Vital Signs Temp 98.1 F 07/22/18 12:03 Pulse 83 07/22/18 12:03 Resp 18 07/22/18 12:03 BP 151/77 H 07/22/18 12:03 Pulse Ox 100 07/22/18 12:03 Intake & Output 07/20/18 07/21/18 07/22/18 07/23/18 06:59 06:59 06:59 06:59 Intake Total Balance Weight 109.316 kg Narrative: GENERAL: Well-nourished well-developed white female no acute distress SKIN / Genital : Examined in the outer vulvar showed elevated lesions with surrounding mild swelling and redness, induration over the right outer labia with where recent I&D performed with no active drainage, lesions over the left labia with no active drainage seen. There is no active vaginal drainage seen. HEAD: Atraumatic. Normocephalic. EYES: Pupils equal and round. No scleral icterus. No injection or drainage. ENT: No nasal bleeding or discharge. Mucous membranes pink and moist. NECK: Trachea midline. No JVD. CARDIOVASCULAR: Regular rate and rhythm. RESPIRATORY: No accessory muscle use. Clear to auscultation. Breath sounds equal bilaterally. GASTROINTESTINAL: Abdomen soft, non-tender, nondistended. Normoactive bowel sounds MUSCULOSKELETAL: Extremities without clubbing, cyanosis, or edema. No obvious deformities. NEUROLOGICAL: Awake and alert to person place and time. No obvious cranial nerve deficits. Motor grossly within normal limits. Five out of 5 muscle strength in the arms and legs. Normal speech. PSYCHIATRIC: Appropriate mood and affect; insight and judgment normal. Results Labs CBC & Chem 7: 07/23/18 08:29 07/23/18 08:29 Imaging Impressions Abdomen/Pelvis CT 07/22/18 12:55 CONCLUSION: 1. Negative CT scan abdomen and pelvis. I do not see evidence for intra- abdominal process. 2. Do not see evidence for a vulvar abscess. Caprini VTE Risk Assessment Caprini VTE Risk Assessment: No/Low Risk (score <= 1) Caprini Risk Assessment Model: Point Value = 1 Point Value = 2 Point Value = 3 Point Value = 5 Age 41-60 Minor surgery BMI > 25 kg/m2 Swollen legs Varicose veins or History of unexplained or recurrent spontaneous Oral contraceptives or hormone replacement Sepsis (< 1 month) Serious lung disease, including pneumonia (< 1 month) Abnormal pulmonary function Acute myocardial infarction Congestive heart failure (< 1 month) History of inflammatory bowel disease Medical patient at bed rest Age 61-74 Arthroscopic surgery Major open surgery (> 45 min) Laparoscopic surgery (> 45 min) Malignancy Confined to bed (> 72 hours) Immobilizing plaster cast Central venous access Age >= 75 History of VTE Family history of VTE Factor V Leiden Prothrombin [id number] Lupus anticoagulant Anticardiolipin antibodies Elevated serum homocysteine Heparin-induced thrombocytopenia Other congenital or acquired thrombophilia Stroke (< 1 month) Elective arthroplasty Hip, pelvis, or leg fracture Acute spinal cord injury (< 1 month) Prophylaxis Regimen: Total Risk Factor Score Risk Level Prophylaxis Regimen 0-1 Low Early ambulation 2 Moderate Order ONE of the following: *Sequential Compression Device (SCD) *Heparin 5000 units SQ BID 3-4 Higher Order ONE of the following medications: *Heparin 5000 units SQ TID *Enoxaparin/Lovenox 40 mg SQ daily (WT < 150 kg, CrCl > 30 mL/min) *Enoxaparin/Lovenox 30 mg SQ daily (WT < 150 kg, CrCl > 10-29 mL/min) *Enoxaparin/Lovenox 30 mg SQ BID (WT < 150 kg, CrCl > 30 mL/min) AND/OR *Sequential Compression Device (SCD) 5 or more Highest Order ONE of the following medications: *Heparin 5000 units SQ TID (Preferred with Epidurals) *Enoxaparin/Lovenox 40 mg SQ daily (WT < 150 kg, CrCl > 30 mL/min) *Enoxaparin/Lovenox 30 mg SQ daily (WT < 150 kg, CrCl > 10-29 mL/min) *Enoxaparin/Lovenox 30 mg SQ BID (WT < 150 kg, CrCl > 30 mL/min) AND *Sequential Compression Device (SCD) Assessment and Plan (1) Vulvar cellulitis: Code(s): N76.2 - Acute vulvitis Status: Acute Plan 58-year-old white female with a history of diabetes mellitus type 2, hypertension, hyperlipidemia who was recently taken off of Farxiga sent from GYNs office for further evaluation for vulvar lesions Vulvar cellulitis, CT of the abdomen pelvis did not show underlying abscess start IV Zosyn and dose of clindamycin and vancomycin given the emergency room. We will continue monitor patient clinically on IV antibiotics. Suspect this is a side effect from recent Farxiga which has been discontinued. There is no elevation in her white blood count. Await final wound cultures. If symptoms not improve overnight we will consider ID consult. We will consult her Patient Observation Assistant physician Dr. Pendleton. Continue with pain medication. Initiate Diflucan empirically to cover for vulvar and vaginal candidiasis. Hypertension, chronic, resume home lisinopril HCTZ and metoprolol Diabetes mellitus type 2, [id number], overall controlled -resume home glyburide and Junamet, monitor blood sugars with sliding scale insulin. Hyperlipidemia, chronic resume statin. DVT prophylaxisno mechanical or pharmaceutical VTE prophalaxis administered due to patient's low risk assessment of VTE. Encouraged ambulation.
[2018-07-22] MEDS: Insulin NovoLOG Aspart Correctional Sugar Inj SQ SCH ×2 (17:41→22:24)
--- NOTE | 2018-07-22 17:51 | P.OBGPN ---
Appreciate notes from ED and internal medicine. This vulvar cellultis is likely due to farxiga and stress. She has monilia and secondary bacterial infection. agree with diagnoses and plan. Hopefully IV antibiotics will resolve this quickly. No large abscess appreicated and hoepfully cellulits will resolve quickly. No longer of Farxiga.
[2018-07-22] MEDS: Piperacil/Tazo 3.375 GM Premix 3.375 GM/50 ML PIGGYBACK IV.SIG SCH (20:00)
[2018-07-22] MEDS: Senna/Docusate Sodium 8.6/50 MG Tablet PO SCH (22:09)
[2018-07-22] MEDS: Metoprolol Tartrate 25 MG Tablet PO SCH (22:10)
[2018-07-22] MEDS: Zolpidem Tartrate 5 MG Tablet PO PRN (22:22)
[2018-07-22] MEDS: SITAGLIPTIN METFORMIN PO SCH (22:24)
[2018-07-23] MEDS: Piperacil/Tazo 3.375 GM Premix 3.375 GM/50 ML PIGGYBACK IV.SIG SCH ×4 (01:42→20:13)
[2018-07-23] MEDS: Spironolactone 25 MG Tablet PO SCH (08:47)
[2018-07-23] MEDS: Senna/Docusate Sodium 8.6/50 MG Tablet PO SCH ×2 (08:47→22:03)
[2018-07-23] MEDS: hydroCHLOROthiazide 25 MG Tablet PO SCH (08:48)
[2018-07-23] MEDS: Metoprolol Tartrate 25 MG Tablet PO SCH ×2 (08:49→22:03)
[2018-07-23] MEDS: Lisinopril 10 MG Tablet PO SCH (08:49)
[2018-07-23 09:00] LABS: Baso % (Auto) 0.6 % (0.0-2.0); Eos # (Auto) 0.2 th/mm3 (0.0-0.4); Eos % (Auto) 3.2 % (0.0-4.0); Hematocrit 37.2 % (35.0-46.0); Hemoglobin 12.7 gm/dL (11.6-15.3); Lymph # (Auto) 1.4 th/mm3 (1.0-4.8); Lymph % (Auto) 23.4 % (9.0-44.0); Mean Corpuscular HGB Conc 34.3 % (32.0-36.0); Mean Corpuscular Hemoglobin 28.8 pg (27.0-34.0); Mean Corpuscular Volume 84.2 fL (80.0-100.0); Mean Platelet Volume 8.7 fL (7.0-11.0); Mono # (Auto) 0.3 th/mm3 (0.0-0.9); Mono % (Auto) 5.8 % (0.0-8.0); Neut # (Auto) 4.1 th/mm3 (1.8-7.7); Platelet Count 147 th/mm3 (150-450); Red Blood Count 4.42 mil/mm3 (4.00-5.30); Red Cell Distribution Width 14.9 % (11.6-17.2); White Blood Count 6.1 th/mm3 (4.0-11.0)
[2018-07-23] MEDS ORDERED: LISINOPRIL HYDROCHLOROTHIAZIDE PO SCH (09:00)
[2018-07-23 09:23] LABS: Calcium 9.1 mg/dL (8.5-10.1); Potassium 4.1 meq/L (3.5-5.1)
[2018-07-23] MEDS: Insulin NovoLOG Aspart Correctional Sugar Inj SQ SCH ×4 (10:28→22:11)
--- NOTE | 2018-07-23 10:30 | P.PNIM ---
Physical Exam Vital signs: Last Vital Signs Temp 98.0 F 07/23/18 07:55 Pulse 79 07/23/18 07:55 Resp 16 07/23/18 07:55 BP 134/77 07/23/18 07:55 Pulse Ox 95 07/23/18 07:55 Intake & Output 07/21/18 07/22/18 07/23/18 07/24/18 06:59 06:59 06:59 06:59 Intake Total 2107 1050 / 1050 Balance 2107 1050 / 1050 Weight 109.316 kg Narrative: GENERAL: Well-nourished well-developed white female no acute distress SKIN / Genital : Examined in the outer vulvar showed lesions with surrounding mild swelling and improved redness, induration over the right outer labia with a scab over open I&D area, open lesion over the left labia shows some induration and less redness. There is no active vaginal drainage seen. CARDIOVASCULAR: Regular rate and rhythm. RESPIRATORY: No accessory muscle use. Clear to auscultation. Breath sounds equal bilaterally. GASTROINTESTINAL: Abdomen soft, non-tender, nondistended. Normoactive bowel sounds MUSCULOSKELETAL: Extremities without clubbing, cyanosis, or edema. No obvious deformities. NEUROLOGICAL: Awake and alert to person place and time. Motor grossly within normal limits. Results Labs CBC & Chem 7: 07/23/18 08:29 07/23/18 08:29 Imaging Imaging: Impressions Abdomen/Pelvis CT 07/22/18 12:55 CONCLUSION: 1. Negative CT scan abdomen and pelvis. I do not see evidence for intra- abdominal process. 2. Do not see evidence for a vulvar abscess. Assessment and Plan (1) Vulvar cellulitis: Code(s): N76.2 - Acute vulvitis Status: Acute Plan 58-year-old white female with a history of diabetes mellitus type 2, hypertension, hyperlipidemia who was recently taken off of Farxiga sent from GYNs office for further evaluation for vulvar lesions Vulvar cellulitis, CT of the abdomen pelvis did not show underlying abscess clinically improved on IV Zosyn and dose of clindamycin and vancomycin given the emergency room. We will continue monitor patient clinically on IV antibiotics. Suspect this is a side effect from recent Farxiga which has been discontinued. There is no elevation in her white blood count. Await final wound cultures. Appreciate Infant Caregiver physician Dr. Pendleton's recommendations. Continue with pain medication. Initiate Diflucan empirically to cover for vulvar and vaginal candidiasis. Hypertension, chronic, resume home lisinopril HCTZ and metoprolol Diabetes mellitus type 2, [id number], overall controlled -resume home glyburide and Junamet, monitor blood sugars with sliding scale insulin. Hemoglobin A1c 8.0 Hyperlipidemia, chronic continue statin. DVT prophylaxisno mechanical or pharmaceutical VTE prophalaxis administered due to patient's low risk assessment of VTE. Encouraged ambulation. Progress Note: Quality VTE Deep Vein Thrombosis/Pulmonary Embolism Present on Admission: No
[2018-07-23] MEDS ORDERED: Vancomycin Inj 1,000 MG in Sodium Chlor 0.9% Inj 250 ML IV.SIG SCH (15:03)
[2018-07-23] MEDS ORDERED: Vancomycin Consult Pharmacy OTHER PRN (15:03)
[2018-07-23] MEDS: SITAGLIPTIN METFORMIN PO SCH ×2 (15:04→19:37)
--- NOTE | 2018-07-23 17:26 | P.OBGPN ---
Page seen this morning and it was noted that the erythema and extreme tenderness had improved. Induration significant but slightly diminished. Tolerated exam. Has been afebrile. This afternoon, preliminary culture results show S aureus that is MRSA+ and sensitivities pending. She is quite upset about this, but reassured that this is common and community acquired. Likely happened because of her diabetes and Farxiga, recent URTI and severe stress of sister's sudden . Area continues to decrease in redness and the induration continues to slowly diminish although still very substantial in overall area on both labia. Will need 48 hours of the ideal antibiotic IV once sensitivities back to avoid surgical intervention. Will need admission.
[2018-07-23] MEDS: Zolpidem Tartrate 5 MG Tablet PO PRN (22:03)
[2018-07-24] MEDS: Piperacil/Tazo 3.375 GM Premix 3.375 GM/50 ML PIGGYBACK IV.SIG SCH ×2 (02:49→09:24)
[2018-07-24] MEDS: SITAGLIPTIN METFORMIN PO SCH ×2 (09:24→17:57)
[2018-07-24] MEDS: hydroCHLOROthiazide 25 MG Tablet PO SCH (09:25)
[2018-07-24] MEDS: Metoprolol Tartrate 25 MG Tablet PO SCH ×2 (09:25→22:01)
[2018-07-24] MEDS: Spironolactone 25 MG Tablet PO SCH (09:25)
[2018-07-24] MEDS: Senna/Docusate Sodium 8.6/50 MG Tablet PO SCH (09:26)
[2018-07-24] MEDS: Lisinopril 10 MG Tablet PO SCH (09:26)
[2018-07-24] MEDS: Insulin NovoLOG Aspart Correctional Sugar Inj SQ SCH ×4 (09:49→22:07)
[2018-07-24] MEDS ORDERED: Vancomycin Consult Pharmacy OTHER PRN (12:18)
--- NOTE | 2018-07-24 12:27 | P.PNIM ---
Physical Exam Vital signs: Last Vital Signs Temp 97.9 F 07/24/18 08:00 Pulse 76 07/24/18 08:00 Resp 18 07/24/18 08:00 BP 132/77 07/24/18 08:00 Pulse Ox 98 07/24/18 08:00 Intake & Output 07/22/18 07/23/18 07/24/18 07/25/18 06:59 06:59 06:59 06:59 Intake Total 2107 / 4217 50 / 50 Balance 2107 50 / 50 Weight 109.316 kg Narrative: GENERAL: Well-nourished well-developed white female no acute distress SKIN / Genital : Examined in the outer vulvar showed elevated lesions with surrounding mild swelling and persistent redness, induration over the right outer labia with where recent I&D performed with no active drainage, lesions over the left labia with no active drainage seen, persistent swelling and induration. There is no active vaginal drainage seen. CARDIOVASCULAR: Regular rate and rhythm. RESPIRATORY: No accessory muscle use. Clear to auscultation. Breath sounds equal bilaterally. GASTROINTESTINAL: Abdomen soft, non-tender, nondistended. Normoactive bowel sounds MUSCULOSKELETAL: Extremities without clubbing, cyanosis, or edema. No obvious deformities. NEUROLOGICAL: Awake and alert to person place and time. Motor grossly within normal limits. Results Labs CBC & Chem 7: 07/23/18 08:29 07/23/18 08:29 Labs: Microbiology 07/22/18 13:20 Blood - Peripheral Aerobic Blood Culture - Preliminary No growth in 2 days 07/22/18 13:20 Blood - Peripheral Anaerobic Blood Culture - Preliminary No growth in 2 days 07/22/18 13:25 Blood - Peripheral Aerobic Blood Culture - Preliminary No growth in 2 days 07/22/18 13:25 Blood - Peripheral Anaerobic Blood Culture - Preliminary No growth in 2 days 07/22/18 13:29 Abscess - Labia Gram Stain - Final 07/22/18 13:29 Abscess - Labia Wound Culture - Final S. aureus MRSA Assessment and Plan (1) Vulvar cellulitis: Code(s): N76.2 - Acute vulvitis Status: Acute Plan 58-year-old white female with a history of diabetes mellitus type 2, hypertension, hyperlipidemia who was recently taken off of Farxiga sent from GYNs office for further evaluation for vulvar lesions Vulvar cellulitis, CT of the abdomen pelvis did not show underlying abscess Suspect this is a side effect from recent Farxiga which has been discontinued. There is no elevation in her white blood count Wound culture showed MRSA with resistance to clindamycin; genital cultures for herpes pending Stop IV Zosyn and clindamycin Start IV vancomycin and p.o. Bactrim Chief Hydroelectric Station Operator physician Dr. Pendleton also following. Continue with pain medication. Initiate Diflucan empirically to cover for vulvar and vaginal candidiasis. Episode of loose stoolsstop scheduled stool softeners. Initially Lactinex today. If symptoms persist will check C. difficile. Hypertension, chronic, resume home lisinopril HCTZ and metoprolol Diabetes mellitus type 2, [id number], overall controlled -resume home glyburide and Junamet, monitor blood sugars with sliding scale insulin. Hyperlipidemia, chronic resume statin. DVT prophylaxisno mechanical or pharmaceutical VTE prophalaxis administered due to patient's low risk assessment of VTE. Encouraged ambulation. Progress Note: Quality VTE Deep Vein Thrombosis/Pulmonary Embolism Present on Admission: No
[2018-07-24] MEDS: Lactobacillus Acidophilus/L. Spores Tablet PO SCH ×2 (12:55→17:57)
[2018-07-24] MEDS: Famotidine 20 MG Tablet PO SCH ×2 (12:56→22:01)
[2018-07-24] MEDS ORDERED: Vancomycin Inj 1,250 MG in Sodium Chlor 0.9% Inj 250 ML IV.SIG ONE (16:00)
--- NOTE | 2018-07-24 17:30 | P.OBGPN ---
S-Stomach upset from the multiple antibiotics being gracious about being stuck in [facility] due to hospital census no increasing pain O- afebrile Staph is resistant to clindamycin so now on po bactrim and IV vancomycin and po diflucan labia remains indurated and hard, but no progression of pathology. can tolerated exam A- labial cellulits from MRSA precipitated by farxiga, poor control and recent illness. P- continue meds until change in induration and then home on po meds.
[2018-07-24] MEDS: Zolpidem Tartrate 5 MG Tablet PO PRN (22:22)
[2018-07-25] MEDS: Vancomycin Inj 1,000 MG in Sodium Chlor 0.9% Inj 250 ML IV.SIG SCH ×2 (04:58→16:12)
[2018-07-25] MEDS: Insulin NovoLOG Aspart Correctional Sugar Inj SQ SCH ×4 (08:51→21:18)
[2018-07-25] MEDS: Famotidine 20 MG Tablet PO SCH ×2 (08:52→21:35)
[2018-07-25] MEDS: Spironolactone 25 MG Tablet PO SCH (08:52)
[2018-07-25] MEDS: Metoprolol Tartrate 25 MG Tablet PO SCH ×2 (08:53→21:35)
[2018-07-25] MEDS: hydroCHLOROthiazide 25 MG Tablet PO SCH (08:53)
[2018-07-25] MEDS: Lisinopril 10 MG Tablet PO SCH (08:54)
[2018-07-25] MEDS: Lactobacillus Acidophilus/L. Spores Tablet PO SCH ×3 (08:54→18:03)
[2018-07-25] MEDS: SITAGLIPTIN METFORMIN PO SCH ×2 (08:54→18:03)
--- NOTE | 2018-07-25 09:59 | P.PNIM ---
Subjective Interval history: Heartburn is better. Reports no abdominal pain and no further diarrhea. No chills or fever. Complains of mild itchiness in the outer vulvar area Physical Exam Vital signs: Last Vital Signs Temp 98.1 F 07/25/18 08:00 Pulse 72 07/25/18 08:00 Resp 16 07/25/18 08:00 BP 130/66 07/25/18 08:00 Pulse Ox 94 L 07/25/18 08:00 Intake & Output 07/23/18 07/24/18 07/25/18 07/26/18 06:59 06:59 06:59 06:59 Intake Total 2107 / 2107 4218 / 4218 1562.5 / 1562.5 Balance 2107 4218 / 4218 1562.5 / 1562.5 Weight 109.316 kg Narrative: GENERAL: Well-nourished well-developed white female no acute distress SKIN / Genital : outer vulvar showed elevated lesions with surrounding mild swelling and redness, induration over the right outer labia with where recent I& D performed with no active drainage, small pustule lesions over the left labia with no active drainage seen elevated, persistent swelling and induration. There is no active vaginal drainage seen. CARDIOVASCULAR: Regular rate and rhythm. RESPIRATORY: No accessory muscle use. Clear to auscultation. Breath sounds equal bilaterally. GASTROINTESTINAL: Abdomen soft, non-tender, nondistended. Normoactive bowel sounds MUSCULOSKELETAL: Extremities without clubbing, cyanosis, or edema. No obvious deformities. NEUROLOGICAL: Awake and alert to person place and time. Motor grossly within normal limits. Results Labs CBC & Chem 7: 07/23/18 08:29 07/23/18 08:29 Labs: Microbiology 07/22/18 13:20 Blood - Peripheral Aerobic Blood Culture - Preliminary No growth in 2 days 07/22/18 13:20 Blood - Peripheral Anaerobic Blood Culture - Preliminary No growth in 2 days 07/22/18 13:25 Blood - Peripheral Aerobic Blood Culture - Preliminary No growth in 2 days 07/22/18 13:25 Blood - Peripheral Anaerobic Blood Culture - Preliminary No growth in 2 days 07/22/18 13:29 Abscess - Labia Gram Stain - Final 07/22/18 13:29 Abscess - Labia Wound Culture - Final S. aureus MRSA Assessment and Plan (1) Vulvar cellulitis: Code(s): N76.2 - Acute vulvitis Status: Acute Plan 58-year-old white female with a history of diabetes mellitus type 2, hypertension, hyperlipidemia who was recently taken off of Farxiga sent from [facility] office for further evaluation for vulvar lesions Vulvar cellulitis, CT of the abdomen pelvis did not show underlying abscess Suspect this is a side effect from recent Farxiga which has been discontinued. There is no elevation in her white blood count Wound culture showed MRSA with resistance to clindamycin; genital cultures for herpes pending Stop IV Zosyn and clindamycin on 07/24 Continue IV vancomycin and p.o. Bactrim [employer] Representative physician Dr. Pendleton also following. Continue with pain medication. Initiate Diflucan empirically to cover for vulvar and vaginal candidiasis. Episode of loose stoolsnow resolved after stopping daily scheduled stool softeners. Continue Lactinex today. Hypertension, chronic, resume home lisinopril HCTZ and metoprolol, overall blood pressure controlled. Diabetes mellitus type 2, [id number], overall controlled -resume home glyburide and Junamet, monitor blood sugars with sliding scale insulin. Hyperlipidemia, chronic resume statin. DVT prophylaxisno mechanical or pharmaceutical VTE prophalaxis administered due to patient's low risk assessment of VTE. Encouraged ambulation. Progress Note: Quality VTE Deep Vein Thrombosis/Pulmonary Embolism Present on Admission: No
--- NOTE | 2018-07-25 13:15 | P.OBGPN ---
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
[2018-07-25] MEDS: Zolpidem Tartrate 5 MG Tablet PO PRN (21:34)
[2018-07-26] MEDS ORDERED: Pharmacy Ordered Lab Info OTHER ONE (03:45)
[2018-07-26] MEDS: Vancomycin Inj 1,000 MG in Sodium Chlor 0.9% Inj 250 ML IV.SIG SCH (04:45)
[2018-07-26 07:27] VITALS: BP 105/42; PULSE 75; RESP 16; TEMP 97.9; O2SAT 98
[2018-07-26] MEDS: Lactobacillus Acidophilus/L. Spores Tablet PO SCH (08:56)
[2018-07-26] MEDS: Insulin NovoLOG Aspart Correctional Sugar Inj SQ SCH (08:56)
[2018-07-26] MEDS: Famotidine 20 MG Tablet PO SCH (08:57)
[2018-07-26] MEDS: Lisinopril 10 MG Tablet PO SCH (08:57)
[2018-07-26] MEDS: hydroCHLOROthiazide 25 MG Tablet PO SCH (08:57)
[2018-07-26] MEDS: Metoprolol Tartrate 25 MG Tablet PO SCH (08:57)
[2018-07-26] MEDS: Spironolactone 25 MG Tablet PO SCH (08:58)
[2018-07-26] MEDS: SITAGLIPTIN METFORMIN PO SCH (09:00)
--- NOTE | 2018-07-26 11:00 | P.DS ---
DS: Providers Date of admission: 07/23/18 17:48 Primary care physician: [facility] Consults: 07/22/18 16:09 Consult to Gynecology Routine Consulting Provider: Vivian Pendleton Junior Data Analyst:: Vivian Pendleton Patient known to:: Vivian Pendleton Reason for Consultation: Vulvar abscess MD aware Notified:: Physician Spoke with:: Dr. 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 Pendleton after being seen today in clinic for complaints of 1 week history of worsening bilateral labial pain with increased skin lesions and redness over the area. She reports 1 week ago she developed 1 bump over the labial area however has progressively had multiple bumps erupt during the past week to the point where it has become very painful. She reports that in the past she was on Farxiga for the past 3 months and due to worsening recurrent symptoms of yeast infections it was stopped 2 weeks ago in which she was placed on Junamet. She has not had any chills or fevers with the symptoms. The patient reports Dr. Pendleton attempted to open 1 of the lesions with no significant drainage and attempted to culture the area. She was sent here for further evaluation for underlying abscess. Of note, patient also developed an upper respiratory infection about 2 weeks ago in which she was put on prednisone and antibiotics which she has completed the course of. Patient update on day of discharge: Patient reports no chills or fever overnight. No pain of the vaginal area and complained of developing itchiness. Would like to go home if possible to continue outpatient treatment. DS: Diagnosis Discharge Diagnosis (1) Vulvar cellulitis: Status: Acute (2) Infection of skin due to methicillin resistant Staphylococcus aureus (MRSA) : Status: Resolved (3) Diabetes: Status: Chronic DS: Summary 58-year-old white female with a history of diabetes mellitus type 2, hypertension, hyperlipidemia who was recently taken off of Farxiga was sent from Dr. Pendleton's office for admission for worsening infection of the vulvar. She was initially placed on IV Zosyn, clindamycin and given a dose of vancomycin emergency room. Cultures revealed MRSA and antibiotics was switched to IV vancomycin p.o. Bactrim. She responded well clinically. Genital herpes culture also obtained is currently pending at this time. She was also started on Diflucan to cover for Deirdre vulvarvaginitis. She is transitioned home with continued outpatient oral antibiotics and follow-up with Dr. Pendleton. Time Spent with Patient Total time spent providing and/or coordinating discharge services: Less than 30 minutes Quality: VTE Deep Vein Thrombosis/Pulmonary Embolism Present on Admission: No Exam Narrative Exam Narrative: GENERAL: Well-nourished well-developed white female no acute distress SKIN / Genital : outer vulvar showed small elevated lesions with surrounding mild swelling and redness, mild induration over the right outer labia with where recent I&D performed with no active drainage, swelling and redness over the left labia resolving with no active drainage. There is no active vaginal drainage seen. CARDIOVASCULAR: Regular rate and rhythm. RESPIRATORY: No accessory muscle use. Clear to auscultation. Breath sounds equal bilaterally. GASTROINTESTINAL: Abdomen soft, non-tender, nondistended. Normoactive bowel sounds MUSCULOSKELETAL: Extremities without clubbing, cyanosis, or edema. No obvious deformities. NEUROLOGICAL: Awake and alert to person place and time. Motor grossly within normal limits. Results Labs on day of discharge: Labs from last 24 hours 07/26/18 07/26/18 07/25/18 07:49 04:00 21:41 BUN 14 Creatinine 1.12 H Estimated GFR 50 L POC Glucose 144 H 178 H Vancomycin Trough 8.0 07/25/18 07/25/18 16:10 12:27 BUN Creatinine Estimated GFR POC Glucose 132 H 150 H Vancomycin Trough Preliminary micro results at discharge 07/22/18 13:20 Aerobic Blood Culture - Preliminary Blood - Peripheral No growth in 3 days Anaerobic Blood Culture - Preliminary No growth in 3 days 07/22/18 13:25 Aerobic Blood Culture - Preliminary Blood - Peripheral No growth in 3 days Anaerobic Blood Culture - Preliminary No growth in 3 days Impressions ITS Impressions Abdomen/Pelvis CT 07/22/18 12:55 CONCLUSION: 1. Negative CT scan abdomen and pelvis. I do not see evidence for intra- abdominal process. 2. Do not see evidence for a vulvar abscess. Discharge Plan Discharge Disposition Patient Disposition: Discharge Home Discharge Condition Condition: Good Discharge Order Discharge Orders: Discharge Order (Routine); Ordered 07/26/18 Ordered By: Annette Iqbal Physicians Team ED Provider: Davon Oscar ED Midlevel Provider: Ade Friedman Attending Provider: Annette Iqbal Other Providers: Vivian Pendleton Rxs /Orders / Referrals /Forms Prescriptions: New fluconazole 200 mg Tablet 200 mg PO Q24H Qty: 5 RF: 0 sulfamethoxazole-trimethoprim 800-160 mg Tablet 1 tab PO Q12HR Qty: 14 RF: 0 Continue trazodone 50 mg Tablet 50 mg PO HS PRN (Reason: Sleep) RF: 0 lisinopril-hydrochlorothiazide 20-12.5 mg Tablet 0.5 tab PO DAILY RF: 0 glyburide 5 mg Tablet 5 mg PO DAILY RF: 0 spironolactone 25 mg Tablet 25 mg PO DAILY RF: 0 aspirin 81 mg Tablet,Chewable 81 mg PO DAILY RF: 0 ergocalciferol (vitamin D2) [Vitamin D2] 50,000 unit Capsule 50,000 unit PO QWEEK RF: 0 rosuvastatin 40 mg Tablet 40 mg PO HS RF: 0 metoprolol tartrate 25 mg Tablet 25 mg PO BID RF: 0 sitagliptin-metformin [Janumet] 50-1,000 mg Tablet 1 tab PO BID RF: 0 dulaglutide [Trulicity] 0.75 mg/0.5 mL Pen Injector 0.75 mg SUBCUT QWEEK RF: 0 lorazepam 1 mg Tablet 1 mg PO PRN PRN (Reason: Insomnia) RF: 0 Discontinued lorazepam 1 mg Tablet 2 mg PO HS PRN (Reason: Sleep) RF: 0 Referrals: [facility] [Other] - See Instructions ( Please call the physician's office to book the appointment to be seen within 1 week.) Vivian Pendleton MD [OBSTETRICS & GYNECOLOGY] - See Instructions ( Please call the physician's office to book the appointment to be seen within 1 week.) Discharge Instructions Patient Printed Instructions: Sulfamethoxazole/Trimethoprim (By mouth), Fluconazole (By mouth), MRSA (Methicillin-Resistant Staphylococcus Aureus) (DC) , Cellulitis (DC) Post Discharge Care Plan Care Plan Goals: Your Health Problems: vulvar cellulitis Goals to Promote Your Health: * To prevent worsening of your condition * To maintain your health at the optimal level Directions to Meet Your Goals: * Take your medications as prescribed * Follow your dietary instruction * Follow activity as directed * Keep your appointments as scheduled * Take your immunizations and boosters as scheduled * If your symptoms worsen call your PCP * If no PCP go to Urgent Care or Emergency Room Smoking is dangerous to your health. Avoid second hand smoke. You may reach the 24-hour crisis hotline for domestic abuse at . Status ED Status: Left Department
[2018-07-26] MEDS ORDERED: Vancomycin Inj 1,500 MG in Sodium Chlor 0.9% Inj 500 ML IV.SIG SCH (20:00)
[2018-07-28] MEDS ORDERED: Pharmacy Ordered Lab Info OTHER ONE (19:45)
== END 2018-07-26 11:20 | disposition home health service (06) | DRG 758 ==
LOC: NEDA 11:30 → NEPC 11:30 → NEDA 16:52 → NEPGCP 17:05
PROVIDERS: ADMIT Family Medicine; ATTEND Family Medicine
DX: E11.9 Type 2 diabetes mellitus without complications; B37.3 Candidiasis of vulva and vagina; B95.62 Methicillin resistant Staphylococcus aureus infection as the cause of diseases classified elsewhere; E66.9 Obesity, unspecified; Z86.14 Personal history of Methicillin resistant Staphylococcus aureus infection; E78.5 Hyperlipidemia, unspecified; T38.3X5A Adverse effect of insulin and oral hypoglycemic [antidiabetic] drugs, initial encounter; I10 Essential (primary) hypertension; Z68.41 Body mass index [BMI] 40.0-44.9, adult; R12 Heartburn; Z79.84 Long term (current) use of oral hypoglycemic drugs; N76.2 Acute vulvitis
CPT/HCPCS: 74177; 80048; 80053; 80202; 81001; 82565; 82948; 82962; 83036; 83690; 83735; 84520; 85025; 85610; 85651; 85652; 85730; 86140; 86403; 87040; 87070; 87147; 87186; 87205; 87255; 90765; 90775; 96365; 96366; 96367; 96368; 96375; 99285; G0378; J1200; J1815; J2405; J2543; J3370; J3475; J7050; J7120; Q9967